=== PATIENT | female | born 1985 | race Caucasian/White ===

== ENCOUNTER 2018-01-23 16:27 | Outpatient (CLI) | payer OTHER | END 2018-01-23 16:28 | disposition critical access hospital (66) | LOC: EMS 16:27 | PROVIDERS: ATTEND Surgery | DX: M54.2 Cervicalgia (principal); W20.8XXA Other cause of strike by thrown, projected or falling object, initial encounter; W18.39XA Other fall on same level, initial encounter; Y92.512 Supermarket, store or market as the place of occurrence of the external cause | CPT/HCPCS: A0425; A0429 ==

== ENCOUNTER 2018-01-23 16:51 | Emergency (ER) | payer OTHER, MEDICAID ==
[2018-01-23] MEDS ORDERED: TETANUS/DIPHTHERIA/PERTUSSIS 0.5 ML SYRINGE IM ONE (17:04)
[2018-01-23] MEDS ORDERED: NAPROXEN 250 MG TABLET PO STA (17:04)
[2018-01-23] MEDS ORDERED: diazePAM 5 MG TABLET PO STA (17:05)
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
--- NOTE | 2018-01-23 18:18 | XRAY Report ---
Reason: pain Procedure Date: 01/23/2018 Accession Number: [id number] / [id number] Procedure: XR - Ankle 3 View RT CPT Code: FULL RESULT: EXAM: RIGHT ANKLE RADIOGRAPHY EXAM DATE: 01/23/2018 05:56 PM. CLINICAL HISTORY: Injury. Right ankle pain. COMPARISON: None. TECHNIQUE: 3 views. FINDINGS: Bones: Normal. No fractures or bone lesions. Joints: Normal. No effusion. No subluxations. The ankle mortise is normally aligned. Soft Tissues: Normal. No soft tissue swelling. IMPRESSION: Normal ankle radiography. [facility]
--- NOTE | 2018-01-23 18:20 | XRAY Report ---
Reason: pain Procedure Date: 01/23/2018 Accession Number: [id number] / [id number] Procedure: XR - Foot 3 View RT CPT Code: FULL RESULT: EXAM: RIGHT FOOT RADIOGRAPHY EXAM DATE: 01/23/2018 05:56 PM. CLINICAL HISTORY: Injury. Right foot pain. COMPARISON: None. TECHNIQUE: 3 views. FINDINGS: Bones: Normal. No fractures or bone lesions. Joints: Normal. No subluxations. Soft Tissues: Normal. No soft tissue swelling. IMPRESSION: Normal foot radiography. [facility]
[2018-01-23 18:40] VITALS: BP 115/73
== END 2018-01-23 18:40 | disposition home or self-care (01) ==
LOC: EDUNIT# → ED 16:51
DX: S60.551A Superficial foreign body of right hand, initial encounter (principal); S96.911A Strain of unspecified muscle and tendon at ankle and foot level, right foot, initial encounter; S16.1XXA Strain of muscle, fascia and tendon at neck level, initial encounter; S00.81XA Abrasion of other part of head, initial encounter; W22.8XXA Striking against or struck by other objects, initial encounter; Y92.512 Supermarket, store or market as the place of occurrence of the external cause; Y99.0 Civilian activity done for income or pay; Z23 Encounter for immunization
CPT/HCPCS: 73610; 73630; 90471; 90715; 99283; A9270; 1040M